=== PATIENT | male | born 1955 | race Caucasian/White ===

== ENCOUNTER → 2018-08-11 19:30 | Outpatient (CLI) | payer OTHER, SELFPAY ==
--- NOTE | 2018-08-11 19:33 | DI.RAD.S_ITS ---
PROCEDURE: XR CHEST 2V INDICATIONS: chronic cough TECHNIQUE: 2 views of the chest were acquired. COMPARISON: None. FINDINGS: Surgical changes and devices: None. Lungs and pleura: Lungs are clear. No pleural effusions or pneumothorax. Mediastinum: Mediastinal contours are normal. Heart size is normal. Bones and chest wall: No suspicious bony abnormalities. Soft tissues appear unremarkable. IMPRESSION: No acute process. Dictated by: Jeff Martinez M.D. on 08/11/2018 at 19:51 Approved by: Jeff Martinez M.D. on 08/11/2018 at 19:51
== END ==
PROVIDERS: Family Provider Family Medicine; PCP Family Medicine; Visit Provider Physician Assistant
DX: R05 Cough (principal)
CPT/HCPCS: 71046

== ENCOUNTER → 2018-09-05 12:28 | Outpatient (CLI) | payer OTHER, SELFPAY ==
--- NOTE | 2018-09-05 13:58 | DIET.PN ---
Met for an initial consultation for weight control Pt reports he's somewhat tried to follow a keto diet, but has gotten the keto flu. He wonders if that may be because he gives platelets weekly and this throws off his electrolytes. Wanting to know if keto is a good diet to follow. Current diet: cut out a lot of sugar; decreased starchy foods - potatoes- and limiting fruit. For breakfast: oatmeal with 1/2-n-/2 Lunch: hit & miss (lunch about 1/2 time) Dinner: Big meal. Something fast and easy. loves pot pies. Exercise: Routine upset by URI, but plans to re-start. Does an hour intense workout 2/wk that includes 25 stair stepping eliptical, circuit training and leg presses DX: obesity Ht: 6'2 Wt 305# BMI: 39 Assessment: Current eating pattern very light through most of the day with heavy meal in bryanna. On workout days becomes much too hungry. More frequent exercise would benefit wt loss Intervention: Provided ed on carbohydrate foods, on keto diet vs low carb diet and on fueling exercise Plan: Add moderate exercise (walking) on non-workout days for approx 30 min each Low carb diet - suggest approx 2000 kcals for wt loss Keep track on intake w/phone raymond - My fitness pal F/u in 3 weeks to check progress and critique food record
== END ==
PROVIDERS: Family Provider Family Medicine; PCP Family Medicine; Visit Provider Psychiatry & Neurology Psychiatry
DX: E66.9 Obesity, unspecified (principal); Z68.39 Body mass index [BMI] 39.0-39.9, adult
CPT/HCPCS: 97802

== ENCOUNTER → 2019-01-02 07:23 | Outpatient (CLI) | payer OTHER, SELFPAY ==
--- NOTE | 2019-01-02 | DI.NM.S_ITS ---
PROCEDURE: NM BONE 3 PHASE RADIOPHARMACEUTICAL: 20.2 mCi Tc-99m MDP IV. INDICATIONS: LOOSENING PROSTHESIS RIGHT KNEE TECHNIQUE: Multiple bone scintigrams were obtained after intravenous injection of Tc-99m MDP, including flow, blood pool, and delayed images centered to the region of interest. COMPARISON: [facility] [place], [place], XR KNEE ARTHRITIC SERIES LT, 11/23/2017, 9:23. [facility]THRITIC SER[facility] BI, 10/23/2017, 9:56. [facility] [place], [place], XR KNEE STANDING BILATERAL, 06/12/2017, 10:23. [facility], CR, KNEE 3V LEFT, 04/20/2017, 10:49. [facility] [place], CR, XR KNEE ARTHRITIC SERIES LT, 12/20/2018, 11:03. FINDINGS: Immediate images demonstrate no areas of the increased flow to suggest hyperemia. Intermediate images demonstrate no increased activity that would be compatible with blood pooling. Delayed images demonstrate increased radiotracer uptake adjacent to the tibial component of the right knee unicondylar prosthesis and adjacent to the tibial and femoral components of the left knee unicondylar prosthesis. IMPRESSION: 1. Increased delayed phase radiotracer uptake adjacent to the tibial component of right knee prosthesis. Given clinical history the finding is suspicious for prosthesis loosening. 2. Increased delayed phase radiotracer uptake adjacent to the femoral and tibial components of the left knee prosthesis. Please correlate with clinical history to exclude prosthesis loosening. Dictated by: Nany Lucas MD, PhD on 01/02/2019 at 12:57 Approved by: Nany Lucas MD, PhD on 01/02/2019 at 13:02
== END ==
PROVIDERS: Family Provider Family Medicine; PCP Family Medicine; Visit Provider Orthopaedic Surgery
DX: T84.033A Mechanical loosening of internal left knee prosthetic joint, initial encounter (principal)
CPT/HCPCS: 78315; A9503

== ENCOUNTER → 2019-01-21 09:57 | Outpatient (CLI) | payer OTHER, SELFPAY ==
[2019-01-21 10:41] LABS: Add Manual Diff / Slide Review NO; Basophils Absolute Auto 100 /uL (0-100); Eosinophils Absolute Auto 100 /uL (0-450); Eosinophils Percent Auto 1.9 % (2-4); Hematocrit 46.1 % (41-53); Hemoglobin 15.2 g/dL (13.5-17.5); Lymphocytes Absolute Auto 1700 /uL (1100-4500); Lymphocytes Percent Auto 31.9 % (25-40); Mean Corpuscular Hemoglobin 27.7 PG (26-34); Mean Corpuscular Volume 83.9 fL (80-100); Monocytes Absolute Auto 700 /uL (0-900); Neutrophils Absolute Auto 2700 /uL (1500-7000); Neutrophils Percent Auto 51.2 % (50-75); Platelet Count 215 X10^3/uL (150-400); Red Cell Distribution Width 18.1 % (11.6-14.8); White Blood Cell Count 5.2 X10^3/uL (4.5-11.0)
[2019-01-21 11:02] LABS: Erythrocyte Sedimentation Rate 1 MM/HR (0-15)
[2019-01-21 11:03] LABS: C-Reactive Protein Quant 0.5 mg/dL (<1.0)
== END ==
PROVIDERS: Visit Provider Orthopaedic Surgery
DX: M17.11 Unilateral primary osteoarthritis, right knee (principal)
CPT/HCPCS: 36415; 85025; 85651; 86140

== ENCOUNTER → 2019-01-21 14:38 | Outpatient (CLI) | payer OTHER, SELFPAY ==
--- NOTE | 2019-01-25 16:57 | PM.PFT.1 ---
Pulmonary Function Test Referral & Results Date Patient Seen: 01/21/19 Requesting provider: Marlene Chavez Results: The spirometry demonstrates an FVC of 4.99 L which is 92% of predicted. The FEV1 was measured at 3.58 L which is 87% of predicted. The FEV1/FVC ratio was 72 which is 95% of predicted. Following the administration of bronchodilator there was no appreciable change. Lung volumes show an SVC of 5.35 L which is 100% of predicted. The diffusing capacity was measured at 20.60 which is 75% of predicted. No hemoglobin value was provided, so no correction for potential anemia could be made, if appropriate. The maximum voluntary ventilation was slightly reduced Interpretation: This study demonstrates perhaps very mild obstructive lung disease with probably no evidence of benefit following bronchodilator There is also minimal reduction in diffusing capacity less patient is anemic Clinical correlation suggested
== END ==
PROVIDERS: PCP Student in an Organized Health Care Education/Training Program; Visit Provider Student in an Organized Health Care Education/Training Program
DX: R05 Cough (principal); R06.09 Other forms of dyspnea
CPT/HCPCS: 94060; 94726; 94729

== ENCOUNTER → 2019-01-30 16:53 | Outpatient (CLI) | payer OTHER, SELFPAY ==
[2019-01-30 17:26] LABS: Add Manual Diff / Slide Review NO; Basophils Absolute Auto 100 /uL (0-100); Basophils Percent Auto 1.1 % (0-2); Eosinophils Absolute Auto 0 /uL (0-450); Eosinophils Percent Auto 0.6 % (2-4); Hemoglobin 14.8 g/dL (13.5-17.5); Lymphocytes Absolute Auto 1800 /uL (1100-4500); Lymphocytes Percent Auto 25.1 % (25-40); Mean Corpuscular Hemoglobin 27.6 PG (26-34); Mean Corpuscular Volume 83.8 fL (80-100); Monocytes Absolute Auto 900 /uL (0-900); Monocytes Percent Auto 12.6 % (3-14); Neutrophils Absolute Auto 4300 /uL (1500-7000); Neutrophils Percent Auto 60.6 % (50-75); Platelet Count 260 X10^3/uL (150-400); Red Blood Cell Count 5.37 X10^6/uL (4.5-5.9); Red Cell Distribution Width 17.8 % (11.6-14.8); White Blood Cell Count 7.1 X10^3/uL (4.5-11.0)
[2019-01-30 17:36] LABS: Carbon Dioxide 21 mmol/L (22-32); Chloride 108 mmol/L (98-107); HEMOLYSIS 21 (0-50); Sodium 141 mmol/L (137-145)
== END ==
PROVIDERS: PCP Student in an Organized Health Care Education/Training Program; Visit Provider Orthopaedic Surgery
DX: Z96.652 Presence of left artificial knee joint (principal); Z01.818 Encounter for other preprocedural examination; Z01.812 Encounter for preprocedural laboratory examination
CPT/HCPCS: 36415; 80051; 85025; 93005

== ENCOUNTER → 2019-02-28 08:49 | Outpatient (CLI) | payer OTHER, SELFPAY ==
--- NOTE | 2019-02-28 10:25 | PM.TREADMILL ---
Cardiac Stress Test Report Referral & Results Date Patient Seen: 02/28/19 Requesting provider: Marlene Chavez Indication: Dyspnea Rest ECG: Unremarkable Procedure Note: Today following both written and verbal informed consent, the patient was exercised according to a standard [facility] protocol. The patient exercised for a total of 6 minutes 14 seconds achieving a maximum heart rate of 138. Patient's maximum systolic blood pressure was 182. This was an estimated 7.[address]-T segment changes Significant dyspnea but oxygen saturation remained normal throughout Rare PAC and PVC Functional aerobic impairment rated about 20% of the sedentary scale Impression: No evidence of ischemia. Limited exercise capacity due to obesity and inactivity presumably. No evidence of chronic pulmonary disease. Please note: Actual ECG tracings can be found in the PACS system.
== END ==
PROVIDERS: PCP Student in an Organized Health Care Education/Training Program; Visit Provider Student in an Organized Health Care Education/Training Program
DX: R06.00 Dyspnea, unspecified (principal)
CPT/HCPCS: 93016; 93017; 93018

== ENCOUNTER 2019-03-06 09:41 | Inpatient (IN) | payer OTHER, SELFPAY ==
[2019-03-04 11:38] VITALS: BMI 40.8
[2019-03-06] VITALS (23 sets, daily range): BP systolic 109–143; BP diastolic 64–92; PULSE 64–81; RESP 12–24; TEMP 36.2–36.8; O2SAT 67–99; BMI 40.8
--- NOTE | 2019-03-06 08:06 | DI.RAD.S_ITS ---
PROCEDURE: XR KNEE LT 1TO2V INDICATIONS: left total knee TECHNIQUE: 2 view(s) of the knee acquired. COMPARISON: [facility] TAMELA Dawkins, XR KNEE ARTHRITIC SERIES LT, 12/20/2018, 11:03. FINDINGS: Bones: Patient is status post knee joint arthroplasty. Hardware components are in expected positions. Visualized bony structures are intact. Soft tissues: Overlying postoperative changes are noted. There is a soft tissue edema and air are identified. No unexpected radiopaque foreign bodies are evident. Skin shasha are seen along the anterior midline knee. IMPRESSION: Expected postoperative changes related to a total left knee arthroplasty. Dictated by: Yosef Jose M.D. on 03/06/2019 at 15:45 Approved by: Yosef Jose M.D. on 03/06/2019 at 15:46
[2019-03-06] MEDS: ACETAMINOPHEN 325 MG TABLET 975 MG PO ×3 (10:19→21:38)
[2019-03-06] MEDS: CELECOXIB 200 MG CAPSULE PO (10:19)
[2019-03-06] MEDS: PREGABALIN 75 MG CAPSULE PO (10:19)
[2019-03-06] MEDS: LACTATED RINGERS 1,000 ML 42 ML IV (10:20)
--- NOTE | 2019-03-06 10:35 | SUR.OPER ---
Supine on padded OR bed. Pillow under head, arms secured on padded armboards <90 degree abduction. Safety belt across torso. Non-operative leg secured with tape over blanket over lower leg. Operative leg secured in [place]ine positioner. Foam padded brace at thigh of operative leg.
--- NOTE | 2019-03-06 11:02 | PM.PREOP ---
Pre-operative Note Interval Note History & Physical reviewed/Exam performed by Physician: Yes Changes to H&P: No
--- NOTE | 2019-03-06 11:02 | PM.OP.1 ---
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 There is clinical and radiographic evidence of loosening. Preoperative studies showed no indication of infection. The nature of the procedure including the risks and benefits, alternatives, postoperative course and expected outcome were discussed and all questions answered. Consent was obtained. Operative site confirmed and marked. Surgeon: Deepak Lau Tax Accounting Manager: Michele Craft Anesthesia Type: General, Peripheral nerve block and Local Operative Notes Findings: There was no evidence of any infection within the knee. The medial tibial component was not grossly loose but was easily removed and did not have any cement adherent to the bottom of the prosthesis. A primary type total knee replacement was used as noted below. Closure Type: primary Specimen(s): none sent Prosthetic devices, grafts, tissues, transplants, or devices: Reinoso and Nephew Margarita BCS: 7 femoral component, 7 tibial component, 10 mm BCS polyethylene tray and 38 x 9 mm round patella Applied: implant(s) Estimated Blood Loss (mL): 50 Blood products transfused: none Tourniquet time (min): 97 Procedure in detail: The patient was taken to the operative suite and placed under general anesthesia. An abductor nerve block was also given. The patient was given prophylactic antibiotics prior to surgery. The patient was also given tranexamic acid, 1 g just prior to surgery and a second gram just before tourniquet release, for postoperative hemostasis. The knee was then prepped and draped in usual sterile fashion. The leg was exsanguinated with an Esmarch dressing and the tourniquet raised to 300 torr. A 15 cm anterior incision was made. Next a medial trivector arthrotomy was made. The extensor mechanism was marked to ensure accurate repair. Initial exposing dissection was carried out medially and laterally. The knee was then extended and the patellar cut made removing approximately 9-10 mm of bone. The patella was then sized and drilled. Some excess lateral bone was excised and the patellofemoral ligament released. The knee was then flexed and intramedullary femoral alignment kathryn was placed. The distal cutting guide was placed and distal femoral cut was made at the + 0 position with 6 ? of valgus. The majority of the cut was completed with the old femoral implant in place. The femoral implant was then removed with osteotomes. There was minimal bone loss.. The femur was then sized, the cutting block placed and the anterior, posterior and chamfer cuts made at 3 ? of external rotation. A quarter-inch osteotome was used to account for the missing posterior condyle. Alignment was checked against Whitesides line. Tibial component was then removed with osteotomes. There did not appear to be any cement that it here did to the bottom of the prosthesis. It was easily removed. There was minimal bone loss. The extra medullary tibial cutting guide was then placed. A stylus was used to confirm the depth of the cuts medially and laterally. The guide was set to remove approximately 10 mm from the less affected lateral side which appeared to go underneath the medial cut. However, another 2 more mm need to be taken to cut through all of the previously resected medial bone. The proximal tibial cut was then made with an oscillating saw. All meniscus and bony debris was then removed. Flexion extension gaps were checked. The knee balanced well with routine osteophyte removal and releases. A mild release of the MCL was performed with an 18 gauge needle to improve balance. The knee was slightly more lax laterally than medially in flexion and extension. The soft tissues were then injected with a combination of 60 mL of quarter percent Marcaine with epinephrine, 4 of morphine and 20 mL of Exparel. The trial components were then placed. The knee went into full extension and flexion beyond 120?. There was excellent medial- lateral balance throughout motion with just slight increased laxity laterally. Patellar tracking was excellent. The trial components were removed and the knee was cleansed with Pulsavac irrigation and dried. The final components were cemented in with high viscosity vacuum mixed bone cement with antibiotics. The knee was held in extension and the patellar clamp until the cement had adequately cured. The knee was irrigated and inspected for any further debris. The extensor mechanism was closed with 5 interrupted #1 Vicryl sutures and a running #2 Quill suture in 90 degrees of flexion. The subcutaneous tissue was closed with 2-0 Vicryl. The skin was closed with a running 3 0 V-LOC suture and surgical adhesive. An Tyrel dressing and Gm wrap were then applied. The patient tolerated the procedure well and was returned to recovery room in good condition. Post-operative Condition: stable Disposition: PACU Plan for aftercare: [facility] protocol for total knee arthroplasty. Plan discharge tomorrow.
[2019-03-06] MEDS: VANCOMYCIN 1,000 MG/200 ML PIGGYBACK 200 MG IV (11:20)
[2019-03-06] MEDS: MIDAZOLAM 2 MG/2 ML VIAL IV (11:48)
[2019-03-06] MEDS: fentaNYL 100 MCG/2 ML INJ 50 MCG IV (11:48)
--- NOTE | 2019-03-06 12:00 | SUR.PREOP ---
Block start time 1148[] . Monitoring initiated and maintained throughout procedure. Oxygen and medications given per anesthesiologist instructions. Patient remained stable throughout procedure, no adverse reactions noted. Block end time [1159].
[2019-03-06] MEDS: CEFAZOLIN VIAL 3 GM in SODIUM CHLORIDE 0.9% 100 ML 200 ML IV ×2 (12:22→20:03)
--- NOTE | 2019-03-06 12:49 | PM.PROC.1 ---
Procedures Date/Time Date of procedure: 03/06/19 Time of procedure: 11:50 Nerve Block Time out performed: Yes Local anesthetic used: other (Ropivacaine 0.5%) Location of anesthetic used: Left Adductor Canal Amount of anesthesia used (mL): 16 (5ml Lido 0.25% w/ epi and 11ml 0.5% Ropivacaine) Nerve blocks: other (Left Adductor Canal block of Saphenous/Femoral Nerve) Procedure successful: Yes Patient tolerated procedure: well Complications: none Additional comments: Patient in procedure room. Monitors on. Consent obtained. O2 per NC. IV sedation with fentanyl 50mcg and midazolam 1mg. Chloroprep and sterile drapes used. Landmarks ID'd using ultrasound technique. Local infiltration with 27g needle. 100mm Stimex block needle used. Good visualization. Negative aspiration. Test dose negative. Needle position optimized for adequate spread. Total volume of 16ml given. Patient tolerated procedure well without complications and was taken to the operating room for surgery.
[2019-03-06] MEDS: BUPIVACAINE 0.25% W/ EPI (PF) 20 ML, TRANEXAMIC ACID 1,000 MG, SODIUM CHLORIDE 0.9% 10 ML INJ (13:09)
[2019-03-06] MEDS: BUPIVACAINE 0.25% W/ EPI (PF) 40 ML, BUPIVACAINE LIPOSOME 266 MG, SODIUM CHLORIDE 0.9% ... INJ (13:10)
[2019-03-06] MEDS: TRANEXAMIC ACID 1,000 MG VIAL 1000 MG INJ (13:11)
[2019-03-06] MEDS: SODIUM CHLORIDE IRRIG SOLUTION 250 ML, POVIDONE-IODINE SPONGE STICKS 1 APPLIC IRR (13:15)
[2019-03-06] MEDS: hydrOXYzine 50 MG/ML INJ 25 MG IM (15:03)
--- NOTE | 2019-03-06 15:12 | SUR.PHASEI ---
O2 sat 88% 10l simple mask upon arrival. Non rebreather mask applied at 1456, sats 88-92% on 15L
[2019-03-06] MEDS: LORazepam 2 MG/ML INJ 0.25 MG IV (15:25)
--- NOTE | 2019-03-06 15:51 | SUR.PHASEI ---
1525 pt cursing, c/o 10/10 knee pain. Sats in upper 80s-97% on 15L non-rebreather mask. Rt at bedside, changed mask to CPAP. Sats maintaining in low 90s, medicated for pain.
[2019-03-06] MEDS: HYDROMORPHONE 2 MG INJ 0.5 MG IV (15:54)
--- NOTE | 2019-03-06 16:09 | SUR.PHASEI ---
pt roused easily, difficulty focusing, said pain and fell back asleep. Sats 935 2l CPAP.
--- NOTE | 2019-03-06 16:24 | SUR.PHASEI ---
Report called to Sabina.
--- NOTE | 2019-03-06 16:55 | SUR.PHASEI ---
Pt transferred to the floor on 4lnc with CPAP machine and belongings bag. VS stable. IV saline locked. Lt knee drsg cdi, green light flashing on JAMIN drain. +PP to LLE, +movement and sensation to lt foot. Report to Sabina.
[2019-03-06] MEDS: LACTATED RINGERS 1,000 ML 125 ML IV (18:00)
[2019-03-06] MEDS: ASPIRIN EC 81 MG TABLET PO (21:37)
[2019-03-06] MEDS: ATORVASTATIN 20 MG TABLET PO (21:38)
[2019-03-06] MEDS: GABAPENTIN 300 MG CAPSULE PO (21:38)
[2019-03-06] MEDS: Dextroamphetamine-Amphetamine [Adderall] 20 MG 20 EACH PO (21:40)
[2019-03-06] MEDS: risperiDONE 1 MG TABLET 2 MG PO (21:41)
[2019-03-06] MEDS: HYDROMORPHONE 0.5 MG INJ IV (22:14)
--- NOTE | 2019-03-06 23:40 | PC.NURSE ---
1700- Pt arrived to room 204 from PACU via bed. Drowsy but able to answer questions appropriately, allowed to sleep after admission. 97% @L bleed in to own CPAP, LS clear. Using urinal indep in bed. Lt hand LR @ 125. JAMIN w kandis wrap to left knee CDI, JAMIN w green light flashing. Significant other, Elvia in room waiting for pt. Pt with one of his own meds sent to pharmacy; dexamethorphan/adderall and given with 2100 meds. Provided with half sandwiches x 6 and juice @ 2100after pt was fully awake. Bed alarm on for safety, call light in reach.
[2019-03-07] MEDS: HYDROMORPHONE 0.5 MG INJ IV (00:22)
[2019-03-07 03:49] VITALS: BP 136/94; PULSE 81; RESP 17; TEMP 36.7; O2SAT 97
[2019-03-07] MEDS: OXYCODONE IR 5 MG TABLET 10 MG PO ×2 (04:10→09:54)
[2019-03-07] MEDS: LACTATED RINGERS 1,000 ML 125 ML IV (04:11)
[2019-03-07] MEDS: CEFAZOLIN VIAL 3 GM in SODIUM CHLORIDE 0.9% 100 ML 200 ML IV (04:17)
[2019-03-07 06:22] LABS: Hematocrit 37.1 % (41-53); Hemoglobin 12.3 g/dL (13.5-17.5)
[2019-03-07 07:20] VITALS: O2SAT 96
[2019-03-07 08:00] VITALS: BP 125/71; PULSE 80; RESP 16; TEMP 36.3; O2SAT 95
[2019-03-07] MEDS: GABAPENTIN 300 MG CAPSULE PO (08:18)
[2019-03-07] MEDS: ACETAMINOPHEN 325 MG TABLET 975 MG PO ×2 (08:18→14:49)
[2019-03-07] MEDS: ASPIRIN EC 81 MG TABLET PO (08:18)
[2019-03-07] MEDS: MELOXICAM 7.5 MG TABLET 15 MG PO (08:19)
--- NOTE | 2019-03-07 08:35 | PM.DS.1 ---
History of Present Illness History of Present Illness Date Patient Seen: 03/07/19 Time Patient Seen: 08:38 Chief complaint: [id number] Narrative: Hospital day 2, postop day 1 following revision left unicompartment to total knee arthroplasty by Dr. Lau. Patient has remained stable. His had limited activity. No PT yet. He is anticipating going home today. He is scheduled to go to [facility] in [place]. Discharge Providers Provider Date of admission: 03/06/19 09:41 Discharge Date: 03/07/19 Primary care physician: Marlene Chavez MD Consults: 03/06/19 16:57 Consult to Respiratory Therapy Evaluate & Treat Comment: Patient with YANG, uses CPAP; obesity Physician Instructions: Evaluate and treat 03/06/19 16:57 Consult to Discharge Planning Routine Comment: Consult to Physical Therapy Evaluate & Treat Comment: Physician Instructions: postop TKA protocol Consult to Respiratory Therapy Evaluate & Treat Comment: Physician Instructions: Evaluate and treat Discharge provider: Korey Parker PA-C Exam Vital Signs (past 8 hours): - 03/07/19 03:49 03/07/19 08:00 Temperature 98.0 F 97.4 F L Pulse Rate 81 80 Respiratory Rate 17 16 Blood Pressure 136/94 H 125/71 Pulse Oximetry 97 95 Oxygen Delivery Method CPAP Oxygen Flow Rate 2 Narrative Exam Narrative: Alert, oriented no acute distress resting in bed. Legs. Gm wrap and augie dressing in place to left knee. No signs of infection or inflammation. No calf tenderness. Good pulses distally. Objective Labs Result Diagrams: 03/07/19 06:09 Labs: Laboratory Results - last 24 hr 03/07/19 06:09 Hgb 12.3 L Hct 37.1 L Discharge Plan Discharge Plan Patient Disposition: Home Discharge comment: Discharge to home today after cleared by PT. Patient will keep augie dressing in place until postop visit. Given prescription for oxycodone 10 mg for postop pain. He is scheduled to go to [facility]. He will take aspirin 81 mg 1 b.i.d. times 30 days postop. Discharge Med Rec/Prescriptions Prescriptions: New acetaminophen 325 mg Tablet 975 mg PO TID Qty: 30 RF: 0 aspirin 81 mg Tablet,Delayed Release (Dr/Ec) 81 mg PO BID Qty: 60 RF: 0 oxycodone 5 mg Tablet 10 mg PO Q3HR PRN (Reason: Pain, Moderate (4-6)) Qty: 40 RF: 0 Continued risperidone [Risperdal] 2 mg tablet 2 mg PO HS Qty: 90 RF: 3 venlafaxine [Effexor XR] 75 mg capsule,extended release 24hr 225 mg PO QDAY Qty: 270 RF: 3 trazodone 50 mg tablet 100 mg PO HS PRN (Reason: insomnia) Qty: 30 RF: 5 cyclobenzaprine 10 mg tablet 10 mg PO TID PRN (Reason: muscle spasm) RF: 0 meloxicam 15 mg tablet 15 mg PO DAILY RF: 0 dextroamphetamine-amphetamine [Adderall] 20 mg tablet See Rx Instructions PO BID Qty: 180 RF: 0 atorvastatin [Lipitor] 20 MG tablet 20 mg PO HS Qty: 0 RF: 0 amlodipine [Norvasc] 5 MG tablet 5 mg PO QDAY Qty: 0 RF: 0 montelukast [Singulair] 10 MG tablet 10 mg PO QDAY Qty: 0 RF: 0 gabapentin [Neurontin] 300 MG capsule 300 mg PO BID Qty: 0 RF: 0 sildenafil [Viagra] 100 MG tablet 100 mg PO SEE INSTRUCTIONS Qty: 0 RF: 0 (DME) Resmed Airsense 10 CPAP Qty: 1 RF: 0 Follow up/Referrals: Marlene Chavez MD [Primary Care Provider] - Provider Discharge Instructions Diet: Diet as Tolerated Activity: Ambulate as tolerated. Use walker as needed. Do range of motion of knee as much as possible. Cold/Heat Therapy: Cold pack to left knee as needed. Skin/Wound/Dressing Care Report to your healthcare provider any signs of infection, such as:: chills, fever, night sweats, increased pain, unusual drainage and unusual redness Dressing: Keep augie dressing in place until postop visit. Patient may shower with dressing on. Visit Report/Discharge Packet Instructions: DI for Knee Replacement Discharge Data Primary Care Provider: Marlene Chavez Quality VTE Deep Vein Thrombosis/Pulmonary Embolism Present on Admission: No
--- NOTE | 2019-03-07 09:55 | PT.IIE ---
Current Diagnoses Presence of left artificial knee joint (03/06/19) Surgery Performed Operation Date: 03/06/19 11:45 Actual Procedures p Revision of a unicompartmental to total knee arthroplasty(Left) - Deepak Lau MD Surgical History (Last Updated 03/04/19 @ 11:55 by Ruma Rivera, RN) Hx of arthroscopic knee surgery (Acute) Status post left partial knee replacement (Chronic) Status post right partial knee replacement (Resolved) Medical History (Last Updated 03/04/19 @ 11:55 by Ruma Rivera RN) Attention deficit disorder (ADD) in adult (Chronic) Depression (Acute) Essential hypertension (Chronic) HLD (hyperlipidemia) (Acute) Obstructive sleep apnea syndrome (Chronic) Primary insomnia (Chronic) Recurrent respiratory infection (Acute) Physical Therapy Inpatient Evaluation/Re-Eval M1 PT/OT-IP Prior Functional Status Start: 03/07/19 08:20 Freq: NEEDED Status: Active Protocol: Document 03/07/19 09:55 DLM (Rec: 03/07/19 11:09 DL [id number]) Medical Review Prior Functional Status Medical History Reviewed Yes Diet/Fluid Consistency Regular Communication WNL Mobility and Gait Independent without device, community distances, knee pain was limiting his distances before sx Activities of Daily Living and IADL's Independent Prior Functional Level (Other details) likes to take the dog for walks Social History Household Members none Living Arrangements House Number of Floors (Floors) One Floor Number of Stairs To Enter/Railing? 0 Home Environment Standard Height Toilet Home Equipment Front Wheel Walker,Straight Cane,Raised Toilet Seat w/ Armrests Additional Social History Comment semi-retired listed on chart M2 PT-IP Current Condition Start: 03/07/19 08:20 Freq: NEEDED Status: Active Protocol: Document 03/07/19 09:55 DLM (Rec: 03/07/19 11:09 DLM [id number]) Physical Therapy Current Condition Current Condition Evaluation Date 03/07/19 Treatment Diagnosis left TKA, impaired mobility/ gait, failed uni-knee Onset Date 03/06/19 Weight Bearing Status Weight Bearing Status Weight Bear as Tolerated M3 PT-IP Subjective Start: 03/07/19 08:20 Freq: NEEDED Status: Active Protocol: Document 03/07/19 09:55 DLM (Rec: 03/07/19 11:09 DLM [id number]) Subjective Physical Therapy Visit Type Type Initial Evaluation Visit Start Time 09:10 Visit Stop Time 09:55 Total Visit Minutes 45 Number of FILER FINISH Visits 0 Physical Therapy Visit Comments Patient Comments He has out-pt PT set-up for after discharge. His S.O. plans to stay with him at discharge to help him. Patient Goals Discharge home with his significant other to help him as needed Therapy Pain Assessment Pain When Pain Assessed During Mobility Pain Present Pain Present Pain Reported Location Lt knee Intensity 9 Scale Used Numeric (1 - 10) Description Aching,With Movement Pain Behaviors Facial Grimacing,Guarding Pain Management Techniques Apply Cold,Re-positioning, Timing of Activity with Medications M4 PT-IP Mobility and Gait Start: 03/07/19 08:20 Freq: NEEDED Status: Active Protocol: Document 03/07/19 09:55 DL (Rec: 03/07/19 11:09 [facility] [id number]) PT-Bed Mobility Assessment Supine to Sit Supine to Sit Minimal Assistance Sit to Supine Sit to Supine Minimal Assistance Scooting Scooting to Edge of Bed Independent PT-Transfer Assessment Sit to and From Stand Sit to and from Stand Contact Guard Assistance, Minimal Assistance,Use of Upper Extremities Equipment Transfer Assistive Device Gait Belt Transfers Transfer Destination Chair Transfer Technique Stand Step Pivot Transfer Ability Level of Assist Standby Assistance,Contact Guard Assistance Comments Mobility Comments pt up to toilet to urinate this visit, pt left up in recliner with feet elevated, ice on knee and call light close Gait Assessment Gait Gait Assistance Required: Standby Assistance,Contact Guard Assist,1 Person Assist Distance (Feet) 30 Able to Maintain Weight Bearing Status Yes During Gait Assistive Devices Assistive Device Gait Belt,Front Wheeled Walker Gait Deviations General Gait Pattern Antalgic Factors Limiting Gait Function Factors Limiting Gait Function Decreased Activity Tolerance, Decreased Strength,Limited Range of Motion,Pain Comments Gait Comments poor left knee control with weight bearing on left LE during gait, pt c/o increased pain with wt bearing Stair Climbing Assessment Comments Stair Climbing Comments pt has no stairs at home, will defer to out-pt PT for stair TR PT-Balance Assessment Sitting Balance and Reactions Static Sitting Balance Ability Normal Dynamic Sitting Balance Ability Normal Standing Balance and Reactions Static Standing Balance Ability Good Dynamic Standing Balance Ability Good Device Used FWW M5 PT-IP Objective Assessments Start: 03/07/19 08:20 Freq: NEEDED Status: Active Protocol: Document 03/07/19 09:55 DLM (Rec: 03/07/19 11:09 [facility] [id number]) Orientation Orientation/Cognition Level of Alertness Alert Orientation Name,Age,Birthday,Month,Date, Year,Day of Week,Place, Situation Language Function Ability No Deficits Noted Safety Awareness Understands Safety Issues Memory Description No Deficits Noted Gross Range of Motion Upper Extremity ROM Assessment Within Functional Limits Lower Extremity ROM Assessment Left Impaired Impairments poor tolerance for left knee ROM due to pain Strength Upper Extremity Strength Assessment Within Functional Limits Lower Extremity Strength Assessment Left Impaired Hip needs assist to move LE in bed , needs assist for SLR Knee knee ext 2+/5 Ankle DF 4+/5 Coordination Assessment Gross Coordination Gross Coordination WNL Sensation Assessment Sensation Gross Sensation WNL Muscle Tone Muscle Tone WNL Yes M6 PT-IP Treatment Start: 03/07/19 08:20 Freq: NEEDED Status: Active Protocol: Document 03/07/19 09:55 DLM (Rec: 03/07/19 11:09 [facility] [id number]) Physical Therapy Treatment Exercises Exercises Ankle Pumps,Quad Sets,Heel Slides,Straight Leg Raises, Short Arc Quads,Passive Knee Extension Hang,Seated Knee Flexion/Extension Education Education Provided Weight Bearing Status,Post-Op Packet,Safety Other Treatments Other Treatment Performed he could not tolerate doing heel slides or straight leg raise on left LE this visit due to pain so it was performed on right LE for demonstration M7 PT-IP Assessment and Plan Start: 03/07/19 08:20 Freq: NEEDED Status: Active Protocol: Document 03/07/19 09:55 DLM (Rec: 03/07/19 11:09 [facility] [id number]) PT Summary Assessment and Plan Potential Rehabilitation Potential Good Status of Condition at Evaluation Evolving Summary Impairments Pain,ROM,Strength,Balance,Bed Mobility,Transfers,Gait, Activity Tolerance Assessment Summary Daryl is alert and shows good effort with therapy. He reports high level of pain today with activity that limits his mobility tolerance and his ability to do his TKA exercises. Will plan to see him again after lunch with the hope for improved pain management. Discussed pain management concerns with his nurse. Will continue to plan for discharge home later today if he can continue to progress. His Significant other arrived at the end of this visit and reports she is prepared to assist him as needed at home. Goals Bed Mobility Goal Independent Transfer Goal Independent,Front Wheeled Walker Gait Goal Independent,Front Wheel Walker Gait Distance 100 feet Other Goals Demonstrate good knowledge of HEP Days to Meet Goals 2 Frequency of Treatment Frequency Of Treatment Twice a Day Treatment Plan Physical Therapy Treatment Plan Bed Mobility Training,Transfer Training,Gait Training, Therapeutic Exercise,Post Op Education,Discharge Planning, Hot or Cold Pack Recommendations To Nursing Amount of Assist Needed 1 Person Assist Discharge Recommendations PT Discharge Recommendations Home with Assistance, Outpatient PT
--- NOTE | 2019-03-07 12:52 | CM.IDA ---
Initial DCP Assessment Note: Pt is a 63 yo male, resident of [place], now POD#1 from a Uni knee to total left knee surgery w/ Dr Lau PCP: Dr Chavez Payer: Jason MACHADO Reviewed chart, pt discussed in multidisciplinary rounds this morning. Therapy has cleared pt for return home w/SO to assist w/oupt PT, and pt has planned for home, DC order from [facility] has already been initiated this morning. No needs expected from DC planning team although will remain available in case this changes today. GUIDO Rios
--- NOTE | 2019-03-07 14:15 | PT.IPTN ---
Current Diagnoses Presence of left artificial knee joint (03/06/19) Surgery Performed Operation Date: 03/06/19 11:45 Actual Procedures p Revision of a unicompartmental to total knee arthroplasty(Left) - Deepak Lau MD Physical Therapy Treatment Note M2 PT-IP Current Condition Start: 03/07/19 08:20 Freq: NEEDED Status: Active Protocol: Document 03/07/19 09:55 DLM (Rec: 03/07/19 11:09 DLM [id number]) Physical Therapy Current Condition Current Condition Evaluation Date 03/07/19 Treatment Diagnosis left TKA, impaired mobility/ gait, failed uni-knee Onset Date 03/06/19 Weight Bearing Status Weight Bearing Status Weight Bear as Tolerated M3 PT-IP Subjective Start: 03/07/19 08:20 Freq: NEEDED Status: Active Protocol: Document 03/07/19 14:15 DLM (Rec: 03/07/19 14:30 DLM [email or web address]) Subjective Physical Therapy Visit Type Type Treatment Note Visit Start Time 13:40 Visit Stop Time 14:15 Total Visit Minutes 35 Number of SPOT BILLING CLERK Visits 0 Physical Therapy Visit Comments Patient Comments He feels like he can go home today Therapy Pain Assessment Pain When Pain Assessed During Mobility Pain Present Pain Present Pain Reported Location Lt knee Intensity 8 Scale Used Numeric (1 - 10) Description Aching,With Movement Pain Behaviors Facial Grimacing,Guarding Pain Management Techniques Apply Cold,Re-positioning, Timing of Activity with Medications M4 PT-IP Mobility and Gait Start: 03/07/19 08:20 Freq: NEEDED Status: Active Protocol: Document 03/07/19 14:15 DLM (Rec: 03/07/19 14:30 DLM [id number]) PT-Bed Mobility Assessment Supine to Sit Supine to Sit Minimal Assistance Sit to Supine Sit to Supine Minimal Assistance Scooting Scooting to Edge of Bed Independent PT-Transfer Assessment Sit to and From Stand Sit to and from Stand Standby Assistance,Contact Guard Assistance,Use of Upper Extremities Equipment Transfer Assistive Device Gait Belt,Front Wheeled Walker Transfers Transfer Destination Bed Transfer Technique Stand Step Pivot Transfer Ability Level of Assist Standby Assistance,Contact Guard Assistance Comments Mobility Comments His S.O is present this visit Gait Assessment Gait Gait Assistance Required: Standby Assistance,Contact Guard Assist,1 Person Assist Distance (Feet) 110 Able to Maintain Weight Bearing Status Yes During Gait Assistive Devices Assistive Device Gait Belt,Front Wheeled Walker Gait Deviations General Gait Pattern Antalgic Factors Limiting Gait Function Factors Limiting Gait Function Decreased Activity Tolerance, Decreased Strength,Limited Range of Motion,Pain Comments Gait Comments improved knee control during stance phase of gait, safe use of UE's to assist left LE during gait on the fWW M5 PT-IP Objective Assessments Start: 03/07/19 08:20 Freq: NEEDED Status: Active Protocol: Document 03/07/19 14:15 DLM (Rec: 03/07/19 14:30 DLM [email or web address]) Other Assessments Other Other Assessments moderate pitting edema noted throughout LE, kandis wrap rewrapped around knee, JAMIN drain in use M6 PT-IP Treatment Start: 03/07/19 08:20 Freq: NEEDED Status: Active Protocol: Document 03/07/19 14:15 DLM (Rec: 03/07/19 14:30 DLM [email or web address]) Physical Therapy Treatment Exercises Exercises Ankle Pumps,Quad Sets,Heel Slides,Passive Knee Extension Hang,Seated Knee Flexion/ Extension Knee ROM Measurement AAROM in supine 20-45 in supine, limited by pain Education Education Provided Weight Bearing Status,Post-Op Packet,Safety Other Treatments Other Treatment Performed noted a shifting and clunking in left knee with attempts to flex the knee, no increased pain reported but it continued throughout heel slide exercise M7 PT-IP Assessment and Plan Start: 03/07/19 08:20 Freq: NEEDED Status: Active Protocol: Document 03/07/19 14:15 DLM (Rec: 03/07/19 14:30 DLM [id number]) PT Summary Assessment and Plan Summary Impairments Pain,ROM,Strength,Balance,Bed Mobility,Transfers,Gait, Activity Tolerance Progress Towards Goals Progressing Toward Goals,Safe For Discharge Assessment Summary He demonstrates improved gait this visit with increased distance and improved gait pattern. He continues to report increased pain with activity. Pt reports he feels he can manage his pain at home . His S.O. is prepared to assist him at home. Will clear pt to discharge home today if medically cleared. Goals Bed Mobility Goal Independent Transfer Goal Independent,Front Wheeled Walker Gait Goal Independent,Front Wheel Walker Gait Distance 100 feet Other Goals Demonstrate good knowledge of HEP Days to Meet Goals 2 Frequency of Treatment Frequency Of Treatment Twice a Day Treatment Plan Physical Therapy Treatment Plan Bed Mobility Training,Transfer Training,Gait Training, Therapeutic Exercise,Post Op Education,Discharge Planning, Hot or Cold Pack Recommendations To Nursing Amount of Assist Needed 1 Person Assist Discharge Recommendations PT Discharge Recommendations Home with Assistance, Outpatient PT
[2019-03-07] MEDS: CYCLOBENZAPRINE 10 MG TABLET PO (14:49)
== END 2019-03-07 14:58 | disposition home or self-care (01) | DRG 467 ==
PROVIDERS: Admitting Provider Orthopaedic Surgery; PCP Student in an Organized Health Care Education/Training Program; Visit Provider Orthopaedic Surgery
PROC: 0SRD0J9 Replacement of Left Knee Joint with Synthetic Substitute, Cemented, Open Approach (ICD-10-PCS; principal; 2019-03-06 11:45)
DX: T84.033A Mechanical loosening of internal left knee prosthetic joint, initial encounter (principal); Z68.41 Body mass index [BMI] 40.0-44.9, adult; G47.33 Obstructive sleep apnea (adult) (pediatric); E66.01 Morbid (severe) obesity due to excess calories; I10 Essential (primary) hypertension; E78.5 Hyperlipidemia, unspecified; F32.9 Major depressive disorder, single episode, unspecified; M17.12 Unilateral primary osteoarthritis, left knee
CPT/HCPCS: 36415; 64447; 73560; 85014; 85018; 94760; 97110; 97116; 97162; C1776; C9290; J0171; J0690; J1100; J1170; J2060; J2250; J2405; J2704; J3010; J3410

== ENCOUNTER → 2019-03-21 15:08 | Outpatient (CLI) | payer OTHER, SELFPAY ==
[2019-03-06 18:40] VITALS: BMI 40.8
--- NOTE | 2019-03-21 | DI.US.S_ITS ---
PROCEDURE: US PERIPH VENOUS LOW EXTREM LT INDICATIONS: LEFT PAIN AND SWELLING TECHNIQUE: Real-time imaging, as well as color and pulse Doppler interrogation, were performed of the lower extremity deep veins from the inguinal ligament to the popliteal fossa. COMPARISON: None. FINDINGS: The common femoral, femoral and popliteal veins are normally compressible, and free of intraluminal thrombus. Color and pulse Doppler demonstrate normal phasic intraluminal flow. There is normal augmentation response to distal compression maneuver. Scattered left lower extremity subcutaneous edema IMPRESSION: No evidence of deep venous thrombosis. Dictated by: De Moya M.D. on 03/21/2019 at 16:09 Approved by: De Moay M.D. on 03/21/2019 at 16:10
== END ==
PROVIDERS: PCP Student in an Organized Health Care Education/Training Program; Visit Provider Physician Assistant Medical
DX: M79.605 Pain in left leg (principal); M79.89 Other specified soft tissue disorders
CPT/HCPCS: 93971

== ENCOUNTER → 2020-02-21 13:53 | Outpatient (CLI) | payer OTHER, SELFPAY ==
[2019-03-06 18:40] VITALS: BMI 40.8
[2020-02-22 12:02] LABS: COVID19 Sendout Not Detected (Not Detect)
== END ==
PROVIDERS: PCP Student in an Organized Health Care Education/Training Program; Visit Provider Physician Assistant
DX: Z11.59 Encounter for screening for other viral diseases (principal)
CPT/HCPCS: 87635

== ENCOUNTER 2020-02-24 14:25 | Day surgery (SDC) | payer OTHER, SELFPAY ==
[2019-03-06 18:40] VITALS: BMI 40.8
[2020-02-24] VITALS (7 sets, daily range): BP systolic 133–161; BP diastolic 78–94; PULSE 63–79; RESP 12–18; TEMP 36.1–36.7; O2SAT 96–99; BMI 36.3
--- NOTE | 2020-02-24 12:07 | PM.OP.ENDO ---
Operative Date/Time/Diagnoses Date of procedure: 02/24/20 Pre-op diagnosis: 1. Hematochezia 2. Constipation 3. Family history cancer mother 4. Severe obesity, BMI > 40 Post-op diagnosis: other (As below.) Procedure & Clinicians Study performed: Colonoscopy Same procedure as scheduled: Yes Surgeon: Marlene Chavez Procedure Notes SCOAP/Timeout: 4:22 p.m. Procedure in detail: ENDOSCOPIST: Marlene Chavez MD Anesthesiologist: Dr. Bashir Sedation start time: 4:23 p.m. Sedation end time: 4:47 p.m. PROCEDURE: Colonoscopy INDICATIONS: 1. Hematochezia 2. Constipation 3. Family history of colon cancer, mother 4. Severe obesity, BMI greater than 40 with ASA Class 3 requiring MD anesthesia MEDICATION: Levsin 0.125 mg sublingual, 2 mg of Versed and titrated propofol until level of sedation achieved. ASA CLASS: 3 CECAL WITHDRAWAL TIME: 11 minutes COMPLICATIONS: None. EXTENT OF PROCEDURE: Cecum. QUALITY OF PREP: Good with portions of liquid stool. PROCEDURE: Prior to insertion of the colonoscope, a digital rectal examination was accomplished with circumferential palpation of the distal rectal mucosa without significant findings being noted. The high-definition colonoscope was passed into the rectum in the usual fashion and advanced over to the cecum without difficulty. The ileocecal valve, appendiceal stoma, and medial wall all could be inspected and no abnormalities were seen. ASCENDING COLON: As the colonoscope was withdrawn, care was taken to expose and inspect the haustral folds and no abnormalities were seen. HEPATIC FLEXURE: Normal, no polyps, diverticula or other abnormalities. TRANSVERSE COLON: Normal, no polyps, diverticula or other abnormalities. DESCENDING COLON: Normal, no polyps, diverticula or other abnormalities. SIGMOID COLON: Minor diverticulosis, otherwise, normal, no polyps or other abnormalities. RECTUM: Normal. J maneuver was produced. There was no significant perianal disease. The J maneuver was broken. The remainder of the rectum was inspected and there was external hemorrhoid disease, nonverbal. The scope was withdrawn. IMPRESSION: 1. Normal colonoscopy 2. External hemorrhoids, nonthrombosed PLAN: 1. Repeat colonoscopy in 5 years secondary to family history of colon cancer. 2. Hematochezia likely secondary to external hemorrhoids. Recommend high-fiber diet and plenty of water to avoid constipation. The possibility of a missed lesion including a malignancy has been discussed with the patient previously. Potential alarm symptoms have been discussed and should be reported immediately. Complications: none Post-procedure Recommendations: Colonscopy in 5 years Follow up: as needed Disposition: PACU
[2020-02-24] MEDS: HYOSCYAMINE 0.125 MG TABLET PO (15:24)
[2020-02-24] MEDS: LACTATED RINGERS 1,000 ML 200 ML IV (15:25)
--- NOTE | 2020-02-24 16:53 | PM.PREOP ---
Pre-operative Note COVID-19 COVID-19 status: Negative Result date/Date tested (Pos, Neg/Pending): 02/21/20 Interval Note History & Physical reviewed/Exam performed by Physician: Yes Changes to H&P: No ASA Class (for procedural sedation): III
== END 2020-02-24 17:33 | disposition home or self-care (01) ==
PROVIDERS: PCP Student in an Organized Health Care Education/Training Program; Referring Provider Student in an Organized Health Care Education/Training Program; Visit Provider Student in an Organized Health Care Education/Training Program
PROC: 0DJD8ZZ Inspection of Lower Intestinal Tract, Via Natural or Artificial Opening Endoscopic (ICD-10-PCS; CPT 45378; principal; 2020-02-24 16:00)
DX: K92.1 Melena (principal); K59.00 Constipation, unspecified; Z80.0 Family history of malignant neoplasm of digestive organs; E66.9 Obesity, unspecified; Z68.41 Body mass index [BMI] 40.0-44.9, adult; K64.4 Residual hemorrhoidal skin tags
CPT/HCPCS: 45378; J2250; J2704

== ENCOUNTER → 2020-08-14 12:03 | Outpatient (CLI) | payer MEDICARE, SELFPAY ==
[2019-03-06 18:40] VITALS: BMI 40.8
[2020-08-14] MEDS: COVID-19 VACC #1, MRNA(MOD) 100 MCG/0.5 ML VIAL IM (12:07)
== END ==
PROVIDERS: PCP Student in an Organized Health Care Education/Training Program; Visit Provider Internal Medicine
DX: Z23 Encounter for immunization (principal)
CPT/HCPCS: 0011A; 91301

== ENCOUNTER → 2020-09-10 07:25 | Outpatient (CLI) | payer MEDICARE, SELFPAY ==
[2019-03-06 18:40] VITALS: BMI 40.8
[2020-09-10] MEDS: COVID-19 VACC #2, MRNA(MOD) 100 MCG/0.5 ML VIAL IM (07:31)
== END ==
PROVIDERS: PCP Student in an Organized Health Care Education/Training Program; Visit Provider Internal Medicine
DX: Z23 Encounter for immunization (principal)
CPT/HCPCS: 0012A; 91301

== ENCOUNTER → 2021-02-22 14:42 | Outpatient (CLI) | payer OTHER, SELFPAY ==
[2019-03-06 18:40] VITALS: BMI 40.8
--- NOTE | 2021-02-22 | DI.ECHO.S_ITS ---
[place] [facility]---------+ [facility] +---------+ : : [address] : : : : [id number] : : : : Phone: [phone] Echocardiogram Report + + :Name: ALINA LIU Study Date: 02/22/2021 Height: 75 in : :[facility] ReadingLocation: Weight: 330 lb : : Gender: Male BSA: 2.7 m2 : :: 1955 Age: 65 yrs BP: 151/93 mmHg: :Reason For Study: HYPERTENSION : :Ordering Physician: JORI, : :DOROTHEA Performed By: Katie Loera : :Referring: DOROTHEA HSIEH : + + Interpretation Summary Mild concentric left ventricular hypertrophy with ejection fraction 60-65%. Diastolic parameters suggest a relaxation abnormality of the left ventricle, consistent with probable normal filling pressures. The aortic valve is slightly calcified. Moderate-severely enlarged ascending aorta (5.1 cm). Procedure: A two-dimensional transthoracic echocardiogram with color flow and Doppler was performed. The study quality was technically adequate. There is no prior echocardiogram noted for this patient. The patient was in sinus bradycardia with heart rates between 55-60 bpm during the exam. Left Ventricle: The left ventricle is normal in size. There is mild concentric left ventricular hypertrophy. The ejection fraction is estimated to be 60-65%. There are no focal wall motion abnormalities. Diastolic parameters suggest a relaxation abnormality of the left ventricle, consistent with probable normal filling pressures. Right Ventricle: The right ventricle is normal in size and function. Atria: The left atrial size is normal. Right atrial size is normal. There is no Doppler evidence for an interatrial shunt. Mitral Valve: The mitral valve leaflets appear borderline thickened, but open well. There is trace mitral regurgitation. Aortic Valve: The aortic valve is slightly calcified. The peak aortic velocity is 2.39 m/sec. The aortic valve mean gradient is 12 mmHg. There is trace aortic regurgitation. Tricuspid Valve: The tricuspid valve is not well visualized, but is grossly normal. There is trace tricuspid regurgitation. Pulmonary artery pressures cannot be estimated because of the lack of a measurable TR jet velocity. Pulmonic Valve: The pulmonic valve is not well visualized. There is mild pulmonic regurgitation. Great Vessels: The aortic root is mildly dilated. The ascending aorta is moderate-severely enlarged. The inferior vena cava was not well visualized. Pericardium/ Pleura There is no pericardial effusion. There is no pleural effusion. MMode/2D Measurements & Calculations LVIDd: 5.7 cm LVOT diam: 3.0 cm LVIDs: 3.7 cm Ao root diam: 4.3 cm FS: 34.3 % asc Aorta Diam: 5.1 cm IVSd: 1.3 cm Ao Arch Diam (Prox Trans): 3.4 cm LVPWd: 1.1 cm LV rossi. diameter/BSA (cm/m^2): 2.1 LV sys. diameter/BSA (cm/m^2): 1.4 LA A2 area: 21.2 cm2 RA long axis: 5.2 cm LA A4 area: 17.1 cm2 RA area: 15.5 cm2 LA length (vol): 4.6 cm RA vol: 39.5 ml LA vol: 66.8 ml RA : 14.6 ml/m2 LA vol index: 24.6 ml/m2 IVC diam: 1.8 cm RVD1 (basal): 3.4 cm TAPSE: 2.3 cm Doppler Measurements & Calculations Ao V2 max: 239.3 cm/sec LVOT Max Dean: 109.5 cm/sec Ao V2 mean: 150.9 cm/sec LV V1 max P.8 mmHg Ao max P.1 mmHg LV V1 VTI: 24.0 cm Ao mean P.1 mmHg DONNIE(I,D): 3.6 cm2 Ao V2 VTI: 46.2 cm DONNIE(V,D): 3.1 cm2 sev ratio: 0.52 DONNIE indexed to BSA (cm^2/m^2): 1.3 MV E max dean: 78.8 cm/sec PA V2 max: 105.6 cm/sec MV A max dean: 100.5 cm/sec PA V2 mean: 76.6 cm/sec MV E/A: 0.78 PA mean P.6 mmHg Med Peak E' Dean: 6.1 cm/sec PA pr(Accel): 36.2 mmHg E/E' med: 13.0 Lat Peak E' Dean: 6.0 cm/sec E/E' lat: 13.1 E/e' average: 13.0 MV dec time: 0.28 sec SV(LVOT): 165.1 ml Electronically signed by: Abigail Salazar on Reading Physician:02/23/2021 12:04 PM
== END ==
PROVIDERS: PCP Student in an Organized Health Care Education/Training Program; Referring Provider Student in an Organized Health Care Education/Training Program; Visit Provider Student in an Organized Health Care Education/Training Program
DX: I77.810 Thoracic aortic ectasia (principal); I10 Essential (primary) hypertension; I37.1 Nonrheumatic pulmonary valve insufficiency; R60.9 Edema, unspecified; E78.5 Hyperlipidemia, unspecified
CPT/HCPCS: 93306

== ENCOUNTER → 2022-03-15 06:06 | Outpatient (CLI) | payer OTHER, SELFPAY ==
[2019-03-06 18:40] VITALS: BMI 40.8
--- NOTE | 2022-03-15 06:07 | DI.ECHO.S_ITS ---
[facility] +---------+ : : [address] : [address] : : : : [id number] : : : : Phone: [phone]+ Echocardiogram Report + + :Name: ALINA LIU Study Date: 03/15/2022 Height: 74 in : :[facility] ReadingLocation: Weight: 320 lb : : Gender: Male BSA: 2.7 m2 : :: 1955 Age: 66 yrs BP: 147/89 mmHg: :Reason For Study: Aortic, Ascending Aneurysm : :Ordering Physician: FABIAN, : :LORNA Performed By: Myron Holt : :Referring: LORNA PERALTA : + + Interpretation Summary There is mild concentric left ventricular hypertrophy. The ejection fraction is estimated to be 60-65%. Diastolic function could not be accurately assessed due to contradictory data. The right ventricle is normal in size and function. Cannot rule out a bicuspid aortic valve. Pulmonary artery pressures cannot be estimated because of the lack of a measurable TR jet velocity. The aortic root is moderately dilated, 4.8 cm. The ascending aorta is moderate-severely enlarged, 5.0 cm. Compared to the prior study dated 02/22/2021, the aortic root has an increased diameter of 4.7 cm from 4.3 cm noted previously; the ascending aortic dilation is unchanged. Procedure: A two-dimensional transthoracic echocardiogram with color flow and Doppler was performed. The study quality was technically difficult. Comparison is made with the echocardiogram of 02/22/2021. Left Ventricle: The left ventricle is normal in size. There is mild concentric left ventricular hypertrophy. Left ventricular systolic function is normal. The ejection fraction is estimated to be 60-65%. There are no focal wall motion abnormalities. Diastolic function could not be accurately assessed due to contradictory data. Right Ventricle: The right ventricle is normal in size and function. Atria: Both atria are normal in size. The interatrial septum grossly appears intact with no obvious evidence for an atrial septal defect. Mitral Valve: There is mild mitral annular calcification. There is no mitral regurgitation noted. Aortic Valve: The aortic valve is moderately calcified. Cannot rule out a bicuspid aortic valve. The aortic valve mean gradient is 10 mmHg. The peak aortic velocity is 2.17 m/sec. Dimensionless index 0.52. No aortic regurgitation is present. Tricuspid Valve: The tricuspid valve is normal in structure and function. No tricuspid regurgitation. Pulmonary artery pressures cannot be estimated because of the lack of a measurable TR jet velocity. Pulmonic Valve: The pulmonic valve is not well visualized. Great Vessels: The aortic root is moderately dilated. The ascending aorta is moderate-severely enlarged. The IVC is dilated (diameter is greater than 2.1 cm) yet it collapses greater than 50% with a sniff. This suggests a right atrial pressure of 8 mm Hg. Pericardium/ Pleura There is no pericardial effusion. There is no pleural effusion. MMode/2D Measurements & Calculations LVIDd: 5.6 cm LVOT diam: 2.4 cm LVIDs: 3.6 cm Ao root diam: 4.8 cm FS: 35.8 % asc Aorta Diam: 5.0 cm IVSd: 1.4 cm LVPWd: 1.3 cm LV rossi. diameter/BSA (cm/m^2): 2.1 LV sys. diameter/BSA (cm/m^2): 1.4 LA dimension: 3.6 cm RA long axis: 5.7 cm LA A2 area: 19.5 cm2 IVC diam: 2.4 cm LA A4 area: 18.3 cm2 LA length (vol): 5.3 cm LA vol: 57.5 ml LA vol index: 21.7 ml/m2 TAPSE_phl: 3.0 cm Doppler Measurements & Calculations Ao V2 max: 217.0 cm/sec LVOT Max Dean: 111.0 cm/sec Ao V2 mean: 149.0 cm/sec LV V1 max P.9 mmHg Ao max P.0 mmHg LV V1 VTI: 25.8 cm Ao mean P.0 mmHg DONNIE(I,D): 2.3 cm2 Ao V2 VTI: 49.3 cm DONNIE(V,D): 2.3 cm2 sev ratio: 0.52 DONNIE indexed to BSA (cm^2/m^2): 0.87 MV E max dean: 97.2 cm/sec SV(LVOT): 113.9 ml MV A max dean: 99.8 cm/sec MV E/A: 0.97 Med Peak E' Dean: 5.8 cm/sec E/E' med: 16.8 Lat Peak E' Dean: 7.3 cm/sec E/E' lat: 13.4 E/e' average: 15.1 MV dec time: 0.29 sec AV VR_phl: 0.51 MV P1/2t-pr_phl: 85.0 msec DONNIE(VTI)/BSA_phl: 0.82 Reading Physician:02:24 PM
== END ==
PROVIDERS: PCP Student in an Organized Health Care Education/Training Program; Referring Provider Internal Medicine; Visit Provider Internal Medicine
DX: I35.8 Other nonrheumatic aortic valve disorders (principal); I71.4 Abdominal aortic aneurysm, without rupture
CPT/HCPCS: 93306

== ENCOUNTER → 2022-05-25 07:33 | Outpatient (CLI) | payer OTHER, SELFPAY ==
[2019-03-06 18:40] VITALS: BMI 40.8
[2022-05-25 08:32] LABS: COVID19 -Nasal RAPID Negative (Negative)
--- NOTE | 2022-05-25 20:26 | DI.NM.S_ITS ---
DATE OF SERVICE: 05/25/2022 PROCEDURE: Exercise stress test. INDICATION: Shortness of breath. CARDIAC STRESS: The patient underwent exercise stress test under the supervision of an attending staff. He walked on Dameon protocol for 3 minutes and 21 seconds and achieved maximum heart rate of 109, which was 70 percent of target heart rate. He had significant shortness of breath and decided to discontinue the stress test. Baseline blood pressure 132/88 and peak blood pressure 148/88. Baseline rhythm was sinus with mild sinus bradycardia, asymmetrical T-wave inversion in diffuse leads with slight ST depression. During peak exercise, there was artifact, however in the immediate recovery, there was no obvious new ischemic changes seen. T-waves got upright in all the leads. Then in late recovery, flipped back to the baseline. The patient has frequent PVCs. No other complex arrhythmias. No chest discomfort. CONCLUSION: This is a submaximal exercise stress test, which is inconclusive to rule out ischemia due to baseline ST-T changes, as stated above. Very poor exercise tolerance. Significant shortness of breath during exercise. No chest pain. Normal blood pressure response. The patient achieved 4.6 metabolic equivalents of workload and functional aerobic impairment positive 50 percent. Correlate clinically and consider echocardiogram to rule out structural heart disease and pharmacological perfusion study for further ischemic evaluation. Also, consider noncardiac causes of shortness of breath. Brian Vizcarra - Leonard/phillip doc#: [id number]/job#: [id number] dd: 05/25/2022 17:25:00 dt: 05/25/2022 19:18:00 DICTATING /COPIES TO: Shanon Briscoe MD COPIES MNE: CONI;
== END ==
PROVIDERS: Referring Provider Internal Medicine; Visit Provider Internal Medicine
DX: R06.09 Other forms of dyspnea (principal); R06.9 Unspecified abnormalities of breathing; Z20.822 Contact with and (suspected) exposure to COVID-19
CPT/HCPCS: 87635; 93017

== ENCOUNTER → 2022-10-19 15:26 | Outpatient (CLI) | payer OTHER, SELFPAY ==
[2019-03-06 18:40] VITALS: BMI 40.8
--- NOTE | 2022-10-19 | DI.MRI.S_ITS ---
PROCEDURE: MR SHOULDER RT WO CON INDICATIONS: Impingement syndrome of right shoulder TECHNIQUE: Noncontrast oblique coronal T2 fast spin echo with fat saturation, oblique sagittal T1 spin echo and T2 fast spin echo with fat saturation, axial T1 spin echo and T2 fast spin echo with fat saturation through the shoulder. COMPARISON: [facility], CR, XR SHOULDER 2+ VIEWS RIGHT, 06/13/2022, 13:37. FINDINGS: Image quality: Excellent. Rotator cuff: There is at least high-grade partial thickness tear of the supraspinatus tendon extending from the musculotendinous junction to the footprint. Suspect full-thickness pinhole perforation. No tendon retraction or supraspinatus muscle atrophy. There is moderate infraspinatus and subscapularis tendinosis. Bones and bursae: No bone marrow contusions or fractures. Moderate acromioclavicular and glenohumeral joint degeneration. The acromion demonstrates conventional anatomy, without an os acromiale. There is subacromial-subdeltoid bursal fluid consistent with bursitis. Capsule and soft tissues: Degenerative superior and inferior labral fraying. There is mild tendinosis of the long head of the biceps tendon which demonstrates normal location and morphology. The rotator interval appears normal, without fibrosis. The coracohumeral ligament is normal in thickness. IMPRESSION: 1. At least high-grade partial thickness tear of the supraspinatus tendon. Suspect full-thickness pinhole perforation. No tendon retraction or supraspinatus muscle atrophy. 2. Moderate infraspinatus and subscapularis tendinosis. 3. Subacromial-subdeltoid bursitis. 4. Moderate acromioclavicular and glenohumeral joint degeneration. Dictated by: Wesley Fajardo M.D. on 10/20/2022 at 9:37 Approved by: Wesley Fajardo M.D. on 10/20/2022 at 10:10
== END ==
PROVIDERS: PCP Family Medicine; Referring Provider Orthopaedic Surgery; Visit Provider Orthopaedic Surgery
DX: M75.111 Incomplete rotator cuff tear or rupture of right shoulder, not specified as traumatic (principal); M19.011 Primary osteoarthritis, right shoulder; M75.51 Bursitis of right shoulder; M75.41 Impingement syndrome of right shoulder
CPT/HCPCS: 73221

== ENCOUNTER → 2023-03-27 10:58 | Outpatient (CLI) | payer OTHER, SELFPAY ==
[2019-03-06 18:40] VITALS: BMI 40.8
--- NOTE | 2023-03-27 | DI.MRI.S_ITS ---
PROCEDURE: MR AB PANCREATIC/MRCP PROTOCOL INDICATIONS: Other specified diseases of pancreas TECHNIQUE: Coronal HASTE through the abdomen, axial 2-D FLASH in- and [id number], and breath-hold T2 FSE with fat saturation through the biliary system and pancreas. Oblique coronal and axial thin-slice HASTE, radial thick-slab HASTE centered on the extrahepatic bile ducts. Intravenous secretin: Not requested. COMPARISON: None. FINDINGS: Pancreas and biliary system: Intra- and extra-hepatic biliary ducts are non dilated. Pancreatic duct is normal in caliber. Gallbladder is unremarkable . Other solid organs: Liver is normal in size. Spleen is normal in size. No adrenal nodules. Both kidneys are normal in size, without hydronephrosis. Nodes and vessels: No retroperitoneal or mesenteric adenopathy by size criteria. Aorta and inferior vena cava are normal in size. Bowel and peritoneum: Visualized large and small bowel is non-dilated. No free fluid. Lung bases: No basal pleural effusions. IMPRESSION: No pancreatic or biliary ductal dilation demonstrated. Dictated by: Frank Cui M.D. on 03/27/2023 at 15:47 Approved by: Frank Cui M.D. on 03/27/2023 at 16:03
== END ==
PROVIDERS: PCP Family Medicine; Referring Provider Family Medicine; Visit Provider Family Medicine
DX: K86.89 Other specified diseases of pancreas (principal)
CPT/HCPCS: 74183; A9579

== ENCOUNTER → 2023-10-27 07:50 | Outpatient (CLI) | payer OTHER, SELFPAY ==
[2019-03-06 18:40] VITALS: BMI 40.8
--- NOTE | 2023-10-27 | DI.ECHO.S_ITS ---
[facility]+ [facility] : : [address] : : [address] [address] : : [id number] : : Phone: [phone] Echocardiogram Report + + :Name: ALINA LIU Study Date: 10/27/2023 Height: 75 in : :Hospital ReadingLocation: Weight: 300 lb : : Gender: Male BSA: 2.6 m2 : :: 1955 Age: 68 yrs BP: 162/89 mmHg: :Reason For Study: THORACIC AORTIC ECTAIA : :Ordering Physician: MANDY, : :MARIO Curran Performed By: Katie Loera : :Referring: MARIO GALVAN : + + Interpretation Summary The left ventricle is mildly dilated. The left ventricular ejection fraction is normal. The ejection fraction is estimated to be 65-70%. The right ventricle is normal in size and function. The aortic valve is bicuspid. The aortic valve is moderately calcified. The peak aortic velocity is 2.98 m/sec. The aortic valve mean gradient is 21 mmHg. The peak aortic velocity on the previous exam was 2.17 m/sec. sev ratio: 0.38 Based on velocity, mean gradient and severity ratio overall mild aortic stenosis but visually appears to have at least moderate restriction of aortic cusps. No severe aortic stenosis. The aortic root is moderately dilated. 4.8 cm in diameter. The ascending aorta is moderate-severely enlarged. 5.0 cm in diameter. BSA: 2.6 m2. Unchanged from the previous study. BP: 162/89 mmHg Procedure: A two-dimensional transthoracic echocardiogram with color flow and Doppler was performed. The study quality was technically adequate. Comparison is made with the echocardiogram of 03/15/2022. The patient was in sinus bradycardia with heart rates between 53-62 bpm during the exam. Left Ventricle: The left ventricle is mildly dilated. There is mild concentric left ventricular hypertrophy. Proximal septal thickening is noted. There is no echo evidence for significant left ventricular outflow tract obstruction. There is no thrombus. The ejection fraction is estimated to be 65-70%. The left ventricular ejection fraction is normal. There are no focal wall motion abnormalities. Diastolic parameters suggest a relaxation abnormality of the left ventricle, consistent with probable normal filling pressures. Right Ventricle: The right ventricle is normal in size and function. Atria: The left atrial size is normal. There has been no significant change since the previous study. Right atrial size is normal. There is no Doppler evidence for an interatrial shunt. Mitral Valve: There is mild mitral annular calcification. There is trace mitral regurgitation. Aortic Valve: The aortic valve is bicuspid. The aortic valve is moderately calcified. The peak aortic velocity is 2.98 m/sec. The aortic valve mean gradient is 21 mmHg. The calculated aortic valve area is 1.6 cm2. The peak aortic velocity on the previous exam was 2.17 m/sec. No aortic regurgitation is present. Tricuspid Valve: The tricuspid valve is normal in structure and function. There is trace tricuspid regurgitation. Pulmonary artery pressures cannot be estimated because of the lack of a measurable TR jet velocity. Pulmonic Valve: The pulmonic valve leaflets are thin and pliable; valve motion is normal. There is mild pulmonic regurgitation. Great Vessels: The aortic root is moderately dilated. The ascending aorta is moderate-severely enlarged. The IVC is dilated (diameter is greater than 2.1 cm) yet it collapses greater than 50% with a sniff. This suggests a right atrial pressure of 8 mm Hg. Pericardium/ Pleura There is no pericardial effusion. There is no pleural effusion. MMode/2D Measurements & Calculations LVIDd: 6.0 cm LVOT diam: 2.4 cm LVIDs: 3.9 cm Ao root diam: 4.8 cm FS: 35.1 % asc Aorta Diam: 5.0 cm EPSS: 1.0 cm Ao Arch Diam (Prox Trans): 3.5 cm IVSd: 1.2 cm LVPWd: 1.3 cm LV rossi. diameter/BSA (cm/m^2): 2.3 LV sys. diameter/BSA (cm/m^2): 1.5 LA A2 area: 22.1 cm2 RA long axis: 5.2 cm LA A4 area: 17.5 cm2 RA area: 14.2 cm2 LA length (vol): 5.4 cm RA vol: 32.8 ml LA vol: 61.2 ml RA : 12.6 ml/m2 LA vol index: 23.5 ml/m2 IVC diam: 2.5 cm RVD1 (basal): 3.7 cm RVD2 (mid): 2.6 cm TAPSE: 2.1 cm Doppler Measurements & Calculations Ao V2 max: 298.2 cm/sec LVOT Max Dean: 103.3 cm/sec Ao V2 mean: 208.2 cm/sec LV V1 max P.3 mmHg Ao max P.5 mmHg LV V1 VTI: 23.7 cm Ao mean P.7 mmHg DONNIE(I,D): 1.8 cm2 Ao V2 VTI: 62.1 cm DONNIE(V,D): 1.6 cm2 sev ratio: 0.38 DONNIE indexed to BSA (cm^2/m^2): 0.68 MV E max dean: 72.0 cm/sec SV(LVOT): 110.4 ml MV A max dean: 93.9 cm/sec MV E/A: 0.77 Med Peak E' Dean: 5.8 cm/sec E/E' med: 12.4 Lat Peak E' Dean: 7.2 cm/sec E/E' lat: 10.0 E/e' average: 11.2 MV dec time: 0.29 sec Reading Physician:03:33 PM
== END ==
LOC: ECHO 07:51
PROVIDERS: PCP Family Medicine; Referring Provider Nurse Practitioner; Visit Provider Nurse Practitioner
DX: Q23.1 Congenital insufficiency of aortic valve (principal); I77.810 Thoracic aortic ectasia; I34.81 Nonrheumatic mitral (valve) annulus calcification; I37.1 Nonrheumatic pulmonary valve insufficiency; I77.89 Other specified disorders of arteries and arterioles
CPT/HCPCS: 93306